=== PATIENT | female | born 1995 ===

== ENCOUNTER 2023-11-28 09:25 | Outpatient (AMB) | payer OTHER, SELFPAY ==
[2023-11-28 09:25] VITALS: BP 112/70; PULSE 80; O2SAT 99; BMI 38.8
--- NOTE | 2023-11-28 09:25 | A.OFFPC_ITS ---
Vital Signs 3 11/28/23 09:25 Height 5 ft 5 in Weight 233 lb BMI 38.8 BP 112/70 Blood Pressure Location Lt brachial Position Sitting Pulse 80 Pulse Source Pulse Oximeter Pulse Oximetry (%) 99 Oxygen Delivery Method Room Air Intake Visit Reasons: New patient Counseling Aide Required: Yes Counseling Aide Language: Dominican Allergies No Known Allergies Allergy (Verified 11/28/23 09:38) Medication List - Last Reconciled 11/28/23 by Edel Lagunas PA-C No Known Home Meds Tobacco use date assessed: 11/28/23 Dental Screening Dental Screen Date: 11/28/23 Did you have a dental visit in the last 12 months?: Yes Did you have a dental problem in the last 6 months where you did not have access to dental care?: No Was dental information given to patient?: Patient has dentist HPI New patient 2 HPI0 Details 28 year old female with no documented pa st medical history coming to the office for the first time. Patient states while she was in [place] she had a colonoscopy completed in 2012 with 1 polyp removed which was negative for malignancy. The colonoscopy was completed due to rectal bleeding and was found to have hemorrhoids at that time. She has a long history of constipation and we will still occasionally have bright red rectal bleeding with straining. She also has a history of a biopsy of a left breast mass which was also negative for malignancy. She continues to have left-sided breast pain but can no longer feel the mass. She also mentioned she has a large mass in the center of her upper back which has been present for an unknown amount of time but in last 2 months has been growing in his become more painful. She also mentioned she has been having irregular/unpredictable menstrual cycles. Lastly she mentioned she is having blurred vision. [facility] Medical History (Updated 11/28/23 @ 10:00 by Edel Lagunas PA-C) Gestational [-induced] hypertension without significant proteinuria, complicating childbirth Surgical History (Updated 11/28/23 @ 09:40 by Edel Lagunas PA-C) Hx of breast reduction, elective Family History (Updated 11/28/23 @ 09:42 by Edel Lagunas PA-C) Maternal Grandfather Colon cancer Maternal Uncle Colon cancer Maternal Aunt Breast cancer Social History Housing: House Patient Tobacco Use Status: Never used Tobacco service: No Current occupational status: unemployed Cognitive needs: No Hearing needs: No Vision needs: No Female Reproductive History Menstrual control method: none Total pregnancies: 3 Full term: 2 Ectopics: 1 History of abnormal pap smear: No Questionnaire PHQ-9 Over the last 2 weeks, how often have you been bothered by any of the following problems? 1. Little interest or pleasure in doing things: not at all 2. Feeling down, depressed, or hopeless: not at all 3. Trouble falling or staying asleep, or sleeping too much: not at all 4. Feeling tired or having little energy: several days 5. Poor appetite or overeating: several days 6. Feeling bad about yourself - or that you are a failure or have let yourself or your family down: not at all 7. Trouble concentrating on things, such as reading the newspaper or watching television: not at all 8. Moving or speaking so slowly that other people could have noticed. Or the opposite - being so fidgety or restless that you have been moving around a lot more than usual: not at all 9. Thoughts that you would be better off or of hurting yourself in some way: not at all Total score: 2 Depression Screening Interpretation: Negative Depression Screening Done: Yes 73260 - PHQ-9 Billing: Yes Source: Developed by Drs. Arian Davis, Deyanira Tracy, Jg Owens and colleagues, with an educational edel from [employer]. Thrive Questionnaire Date Thrive assessed: 11/22/23 I am a: Patient What is your living situation today?: I have a steady place to live Within the past 12 months, did the food you bought not last and you didn't have the money to get more?: Never true Within the past 12 months, did you worry whether your food would run out before you got money to buy more?: Never true Do you have trouble paying for medicines?: No Do you have trouble getting transportation to medical appointments?: No Do you have trouble paying your heating and electricity bill?: I choose not to answer this question Do you have trouble taking care of your child, family member or friend?: No Do you have trouble with day-to-day activities such as bathing, preparing meals, shopping, managing finances, etc.?: No Are you currently unemployed and looking for a job?: Yes Are you interested in more education?: Yes Please select the resources that you would like help with: Housing/Care Home, Job search/training and Education Currently or been in a relationship where the following occur: No concerns reported THRIVE Score: 0 AUDIT C Alcohol Use Questionnaire (AUDIT-C) 1. How often do you have a drink containing alcohol?: Never 2. How many drinks containing alcohol do you have on a typical day when you are drinking?: 1 or 2 3. How often do you have six or more drinks on one occasion?: Never Total Score: 0 MENDOZA-7 AMB Questionnaire MENDOZA-7 Date MENDOZA - 7 assessed: 11/28/23 Feeling nervous, anxious, or on edge: 0 = Not at all Not being able to stop or control worryin = Not at all Worrying too much about different things: 0 = Not at all Trouble relaxin = Not at all Being so restless that it is hard to sit still: 0 = Not at all Becoming easily annoyed or irritable: 0 = Not at all Feeling afraid as if something awful might happen: 0 = Not at all Total MENDOZA-7 score (0-4 normal; 5-9 mild; 10-14 moderate; 15-21 severe): 0 Source: Developed by Drs. Arian Davis, Deyanira Tracy, Jg Owens and colleagues, with an educational edel from [employer]. Review of Systems Const Denies body aches, Denies fatigue, Denies fever(s), Denies frequent falls, Reports headache(s) (occasional) and Denies weakness Eyes Reports blurry vision and Denies change in vision ENT Denies dysphagia, Denies dizziness, Reports headache(s) (occasional) and Denies odynophagia Card Denies chest pain, Denies syncope, Denies irregular heart rhythm, Denies leg edema, Denies lightheadedness and Denies dyspnea Resp Denies cough and Denies dyspnea GI Reports hematochezia (with straining), Reports constipation, Denies dysphagia, Denies dyspepsia, Denies diarrhea, Denies nausea, Denies odynophagia and Denies vomiting Reports abnormal menses, Denies urinary frequency, Denies dysuria, Denies urinary hesitancy and Denies urinary urgency Musc Details: back mass on upper spine Reports back pain and Denies myalgias Skin/Breast Reports as per HPI Neuro Denies dizziness, Denies syncope, Denies frequent falls, Reports headache(s) (occasional) and Denies weakness Psych Reports no additional complaints Endo Denies fatigue Physical exam (Primary Care) Vital Signs: Last Vital Signs Pulse 80 11/28/23 09:25 BP 112/70 11/28/23 09:25 Pulse Ox 99 11/28/23 09:25 Oxygen Delivery Method Room Air 11/28/23 09:25 BMI result Body Mass Index 38.8 Tobacco/Smoking Status: Tobacco use Status Tobacco use date assessed 11/28/23 11/28/23 09:27 Patient Tobacco Use Status Never used Tobacco 11/28/23 09:27 PHQ-9: PHQ-9 Score PHQ-9: Total score 2 11/28/23 09:33 Depression Screening Interpretation: Negative Thrive Assessment: Date of Thrive Assessment Date Thrive assessed 11/22/23 11/28/23 09:27 Currently or been in a relationship where the following occur: No concerns reported Const General: cooperative, healthy appearing, comfortable and no acute distress Orientation/consciousness: patient oriented x3 HENMT Head: Yes normocephalic Ears: hearing grossly normal bilaterally General nose exam: Normal external nose present Eyes General: appearance normal, both eyes and all related structures Conjunctivae: conjunctivae normal Neck Neck: Yes full ROM and Yes no lymphadenopathy Resp Effort & Inspection: normal respiratory effort Auscultation: clear to auscultation bilaterally, no crackles, no rales, no rhonchi and no wheezes Cardio Rate: regular rate Rhythm: regular rhythm Back/Spine/Pelvis Other: 4-5 cm soft tender mass on midline thoracic spine Back/spine/pelvis image: 2 1. Soft mass Skin General skin exam: no rashes or lesions noted Neuro General: patient oriented x3 Gait exam (Neuro): Normal gait present Extrem General: Yes normal to inspection, Yes full ROM and No edema Psych Affect: normal affect Attitude: cooperative Insight: Good insight present (Psych) Judgement: Good judgement present (Psych) Coding Level of Care Code New Pt Level 4 (21204) Diagnoses Irregular menses N92.6 Blurred vision H53.8 Back pain M54.9 Mass on back R22.2 Constipation K59.00 Assessment & Plan Assessment & Plan (1) Irregular menses: Code(s): N92.6 - Irregular menstruation, unspecified Category: Medical Plan: Patient has not undergone Pap smear in several years and referral placed for gynecology with possible hormonal treatment for irregular menses as well. (2) Blurred vision: Code(s): H53.8 - Other visual disturbances Category: Medical Plan: Referral placed for optometry stay. (3) Back pain: Code(s): M54.9 - Dorsalgia, unspecified Category: Medical Plan: Patient has reported lumbar spine pain and tenderness to palpation on exam. X- ray ordered for thoracic and lumbar spine. (4) Mass on back: Code(s): R22.2 - Localized swelling, mass and lump, trunk Category: Medical Plan: Patient has 5 cm soft and tender mass on midline thoracic spine. Referral placed for General surgery for further evaluation and x-rays ordered. (5) Constipation: Code(s): K59.00 - Constipation, unspecified Category: Medical Plan: Patient complains of constipation with occasional bleeding due to hemorrhoids advised patient to increase fiber intake and water intake and prescription sent for senna. Plan Ordered for updated blood work and follow up in 2 months for annual exam and follow up on spine mass. This note was constructed using voice recognition software. While every effort has been made to ensure accuracy and energy engineer, still areas may have been included sometimes these areas may affect the content or meeting of the given symptoms. Total time spent caring for the patient today was 30 minutes. This includes time spent before the visit reviewing the chart, time spent during the visit, and time spent after the visit and documentation. Orders: Orders 2 XR lumbar spine 2-3V Today M54.9 - Dorsalgia, unspecified, R22.2 - Localized swelling, mass and lump, trunk Free T4 (Free Thyroxine) Today Z00.00 - Encounter for general adult medical examination without abnormal findings UA CC w/rflx Micro + Cult Today R35.89 - Other polyuria MM tomosynthesis diagnostic LT Today N64.4 - Mastodynia US breast LT complete Today N64.4 - Mastodynia XR thoracic spine 2V Today R22.2 - Localized swelling, mass and lump, trunk Comprehensive Met. Panel Today Z00.00 - Encounter for general adult medical examination without abnormal findings Complete Blood Count Auto Diff Today Z00.00 - Encounter for general adult medical examination without abnormal findings TSH reflex Free T4 Today Z00.00 - Encounter for general adult medical examination without abnormal findings Vitamin B12 and Folate Today Z00.00 - Encounter for general adult medical examination without abnormal findings Vitamin D 25-OH (D2 and D3) Today Z00.00 - Encounter for general adult medical examination without abnormal findings Referrals 2 Optometry Referral H53.8 - Other visual disturbances, Z00.00 - Encounter for general adult medical examination without abnormal findings EMERGENCY SERVICE WORKER Referral N92.6 - Irregular menstruation, unspecified, Z00.00 - Encounter for general adult medical examination without abnormal findings General Surgery Referral R22.2 - Localized swelling, mass and lump, trunk Medications: New 2 sennosides (senna) 8.6 mg PO BEDTIME PRN 30 caps 0RF constipation
== END 2023-11-28 10:05 | disposition home or self-care (01) ==
DX: N92.6 Irregular menstruation, unspecified (principal); H53.8 Other visual disturbances; M54.9 Dorsalgia, unspecified; R22.2 Localized swelling, mass and lump, trunk; K59.00 Constipation, unspecified

== ENCOUNTER 2023-12-13 08:57 | Outpatient (AMB) | payer OTHER, SELFPAY ==
--- NOTE | 2023-12-13 09:05 | MHC.OFFVIS ---
Vital Signs 12/13/23 09:10 Height 5 ft 5 in Weight 238 lb BMI 39.6 BP 125/75 Blood Pressure Location Rt brachial Position Sitting Pulse 82 Intake Visit Reasons: Mass~ Mid upper back Intake Note: Patient referred by pcp Edel Lagunas PA-C for ass on mid upper back. Present for yrs. Patient c/o: enlarging, painful with touch for the past 2m. Building And Construction Manager Required: Yes Building And Construction Manager Name: Cathy FERGUSON Accompanied by: Self / Same As Patient Allergies No Known Allergies Allergy (Verified 12/13/23 09:09) HPI Comments Details: Patient is a relatively healthy 28-year-old female who presents here with a mid back soft tissue mass. He has had this indeterminate time. His increasing in size, become more symptomatic. She would like to have it removed. She has no such lesions or mass elsewhere. Chart was reviewed and patient evaluate [facility] Medical History Gestational [-induced] hypertension without significant proteinuria, complicating childbirth Surgical History Hx of breast reduction, elective Family History Maternal Grandfather Colon cancer Maternal Uncle Colon cancer Maternal Aunt Breast cancer Social History Housing: House Patient Tobacco Use Status: Never used Tobacco service: No Current occupational status: unemployed Cognitive needs: No Hearing needs: No Vision needs: No Physical Exam Vital Signs: Last Vital Signs Pulse 82 12/13/23 09:10 BP 125/75 12/13/23 09:10 BMI result Body Mass Index 39.6 Chest Other: Chest breath sounds bilaterally, HS 1 in 2 GI Other: Abdomen corpulent, soft, benign Back/Spine/Pelvis Other: Patient has a large mid back soft tissue mass consistent with a giant lipoma measuring approximately 10 by 8 cm Assessment & Plan Assessment & Plan (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 All questions answered. Arrangements were made for this Coding Level of Care Code New Pt Level 5 (10767) Diagnoses Lipomatosis gigantea E88.2
[2023-12-13 09:10] VITALS: BP 125/75; PULSE 82; BMI 39.6
== END 2023-12-13 09:18 | disposition home or self-care (01) ==
LOC: HO.HGS 08:58
PROVIDERS: Visit Provider Surgery
DX: E88.2 Lipomatosis, not elsewhere classified (principal)
CPT/HCPCS: 99204

== ENCOUNTER → 2023-12-13 08:57 | Outpatient (BNVA) | payer OTHER, SELFPAY | PROVIDERS: Visit Provider Surgery | DX: E88.2 Lipomatosis, not elsewhere classified (principal) | CPT/HCPCS: 99202 ==

== ENCOUNTER → 2023-12-20 11:00 | Outpatient (BNV) | payer OTHER, SELFPAY | PROVIDERS: Visit Provider Radiology Diagnostic Radiology | DX: N64.4 Mastodynia (principal) | CPT/HCPCS: 76642 ==

== ENCOUNTER 2023-12-20 11:02 | Outpatient (REF) | payer OTHER, SELFPAY ==
--- NOTE | ~2023-12-20 | US_ITS ---
EXAMINATION: US DIAGNOSTIC ULTRASOUND BREAST, LEFT CLINICAL INFORMATION: 28-year-old female, history of bilateral breast reduction in 2021, complaining of 1 month left breast lateral aspect pain. No palpable abnormalities. COMPARISON: None available. Baseline exam. TECHNIQUE: Ultrasound of the left breast is performed with real-time oliva scale imaging and color Doppler. Attention was given to the 12:00 to 6:00 axis left breast in the region of reported pain. FINDINGS: There is no focal suspicious finding. There is no solid mass, architectural abnormality, duct ectasia, or abnormal shadowing. -Within the superficial aspect left breast at 5:00, 7 cm from the nipple, there is a small oval hypoechoic fluid collection with smooth margination, good through transmission, wider than tall, no internal color Doppler flow or soft tissue elements seen. This has benign features, is located along the 5:00 scar from reduction, and is most likely a residual benign seroma. -No additional cystic abnormalities. US/US breast LT limited mamm only IMPRESSION: -No findings suspicious for malignancy left breast. -Benign seroma 5:00 axis, 7 cm from the nipple measuring 1.2 cm. -No ultrasound findings present to explain diffuse bilateral breast pain. Recommend clinical management and follow-up. ASSESSMENT: BI-RADS 2: Benign RECOMMENDATION: 1. Patient should be managed based on the clinical impression. 2. Otherwise, routine annual screening mammography at age 40. Electronically signed by: Adin Peguero MD 12/20/2023 12:23 PM [facility] [place]
== END 2023-12-20 11:03 | disposition home or self-care (01) ==
LOC: HO.MAMMO 11:02
DX: N64.4 Mastodynia (principal)
CPT/HCPCS: 76642

== ENCOUNTER 2023-12-30 09:21 | Day surgery (SDC) | payer OTHER, SELFPAY ==
--- NOTE | 2023-12-28 12:48 | HO.ANESPROP2 ---
Documented by User: Zita Kee NP 12/28/23 12:49 HPI - Anesthesia Eval Consult details Narrative: 28yo F for Wide Local Excision on Mid Back giant Lipoma PMFSH Active Problems Active Problems: All Active Problems Lipomatosis gigantea (Acute) Breast pain, left (Acute) Constipation (Acute) Blurred vision (Acute) Back pain (Acute) Mass on back (Acute) Annual physical exam (Acute) Irregular menses (Acute) Past Medical History Medical History Gestational [-induced] hypertension without significant proteinuria, complicating childbirth Family History Family History Maternal Grandfather Colon cancer Maternal Uncle Colon cancer Maternal Aunt Breast cancer Surgical History Surgical History Hx of breast reduction, elective Social History Social History Housing: House Patient Tobacco Use Status: Never used Tobacco Use of substances other than those prescribed or required for medical reasons: No Advance Directives: No Advance Directives Information Provided: Yes service: No Current occupational status: unemployed Cognitive needs: No Hearing needs: No Vision needs: No Meds Allergies Allergy/AdvReac Type Severity Reaction Status Date / Time No Known Allergies Allergy Verified 12/30/23 10:29 Assessment and Plan Assessment Anesthesia Assessment: Chart Reviewed Documented by User: Aspen Xavier MD 12/30/23 13:24 PMFSH Past Medical History Medical History Gestational [-induced] hypertension without significant proteinuria, complicating childbirth Family History Family History Maternal Grandfather Colon cancer Maternal Uncle Colon cancer Maternal Aunt Breast cancer Family history of problems with anesthesia: No Surgical History Surgical History Hx of breast reduction, elective History of Problems with Anesthesia: No Social History Social History Housing: House Patient Tobacco Use Status: Never used Tobacco Use of substances other than those prescribed or required for medical reasons: No Advance Directives: No Advance Directives Information Provided: Yes service: No Current occupational status: unemployed Cognitive needs: No Hearing needs: No Vision needs: No Meds Allergies Allergy/AdvReac Type Severity Reaction Status Date / Time No Known Allergies Allergy Verified 12/30/23 10:29 Exam Airway Mallampati Class: II TM Dist: >3cm Neck ROM: Full Heart: rrr Lungs: cta Assessment and Plan Assessment Anesthesia Assessment: Anesthesia Plan Discussed Final Anesthetic Review Family History of Problems with Anesthesia: No History of Problems with Anesthesia: No NPO: Yes ASA Class: II Final Preanesthetic Review: No Changes in Pt Med Stat, Meds/Allgs Chart Reviewed and Consent Obtained/Reviewed Patient Risk: Low Procedure Risk: Low Anesthetic Plan Anesthetic Plan: MAC: Disposition: Standard PACU
--- NOTE | 2023-12-29 15:59 | P.HPSUR_ITS ---
Pre-Procedural Eval Section A - 24 Hr Update-Section A only Date of Service: 12/30/23 The patient is an INPATIENT: No Changes since office visit: No Cold of Flu in the past 2 weeks, No New Medical Problems, No Changes in Medication and No Patient answered all questions Section B - Complete if H&P > 30 days Chief Complaint: Lipomatosis, not elsewhere classified Allergies: Allergies Allergy/AdvReac Type Severity Reaction Status Date / Time No Known Allergies Allergy Verified 12/13/23 09:09 Review of Systems Sugical H&P ROS: Negative: Constitution, Cardiovascular, Respiratory, Neurological, Psychiatric, Hem-Onc, Allergic/Immunologic, Gastrointestinal, Genitourinary, Musculoskeletal, Integumentary, Endocrine and Eyes/Ears/Nos e/Throat Exam Surgical H&P Exam: Normal: HEENT, Normal: Heart, Normal: Lungs, Normal: Extremities, Normal: Abdomen, Normal: Skin and Normal: Neurological Plan I have reviewed the history and physical and performed a pertinent physical examination on my patient. No changes have occurred unless specified. Time Spent With Patient Time: Total time managing care of this patient today ____ minutes.
[2023-12-30 10:33] VITALS: BMI 38.9
[2023-12-30 12:37] VITALS: BP 127/78; PULSE 93; RESP 16; TEMP 36.7; O2SAT 100
[2023-12-30 12:40] LABS: UPreg QC Valid YES; Urine Pregnancy NEGATIVE (NEGATIVE)
[2023-12-30] MEDS: Lactated Ringers 1,000 ML 100 ML IVCONT (12:51)
--- NOTE | 2023-12-30 14:22 | P.OP_ITS ---
Operative Note Operative Note Date of Service: 12/30/23 Narrative: Preoperative diagnosis: [] Very large mid back deep lipoma Postop diagnosis: [] The same Procedure [] wide local excision mid back deep lipoma Surgeon: [] Quirino Retail Loss Prevention Officer: [] Yara Type of Anesthesia: [] Mac Indication for surgery: [] Specimen size measured approximately 11 x 6 cm consistent with the large lipoma deeply situated in the mid back Findings: [] Patient brought to the operating room, placed on operative table supine position, after an adequate level of MAC anesthesia was induced, patient was placed in the right lateral decubitus position. Mid back area was prepped and draped in usual sterile fashion. Wound was infiltrated with 0.5% Marcaine/1 % lidocaine at the beginning at the end of the case. Transverse incision was made over the mass in question and carried down through skin, subcutaneous tissue, were superior and inferior skin flaps were developed with Bovie and circumferentially dissection down to the chest wall musculature was performed with uneventful dissection of a very large deeply situated lipoma. Specimen sent to pathology . Wound was irrigated, secured hemostasis, and closed using interrupted inverted dermal 3-0 Vicryl sutures followed by Steri-Strips and sterile dressings. Sponge, needle, and instrument counts were reported correct. Patient tolerated the procedure well and emerged from anesthesia stable condition. EBL minimal
[2023-12-30 14:35] VITALS: BP 126/58; PULSE 78; RESP 16; TEMP 36.1; O2SAT 96
[2023-12-30 14:50] VITALS: BP 112/65; PULSE 63; RESP 16; TEMP 36.1; O2SAT 96
== END 2023-12-30 15:29 | disposition home or self-care (01) ==
PROVIDERS: Nurse Practitioner; Visit Provider Surgery
PROC: (CPT 21931; principal; 2023-12-30 14:40)
DX: D17.1 Benign lipomatous neoplasm of skin and subcutaneous tissue of trunk (principal); Z98.890 Other specified postprocedural states; Z56.0 Unemployment, unspecified
CPT/HCPCS: 21931; 81025; 88304; J0690; J2003; J2250; J2405; J2704; J3010

== ENCOUNTER → 2023-12-30 09:21 | Outpatient (BNV) | payer OTHER, SELFPAY | PROVIDERS: Visit Provider Surgery | DX: D17.1 Benign lipomatous neoplasm of skin and subcutaneous tissue of trunk (principal) | CPT/HCPCS: 21931 ==

== ENCOUNTER 2024-01-10 10:37 | Outpatient (AMB) | payer OTHER, SELFPAY ==
--- NOTE | 2024-01-10 10:46 | A.OFFVIS_ITS ---
Intake Visit Reasons: S/P WLE mid back giant lipoma Intake Note: Patient here s/p WLE mid back giant lipoma. Reports incision healing well. Patient c/o: feels bumpy. Steri strips fell off. Denies pain, oozing. Manufacturing Intern Required: No Accompanied by: Self / Same As Patient Allergies No Known Allergies Allergy (Verified 01/10/24 10:49) Medication List - Last Reconciled 01/10/24 by Jaret Win MD sennosides (senna) 8.6 mg PO BEDTIME PRN HPI Comments Details: Patient presents for follow-up. She has no wound issues or complaints. Pathology is benign [facility] Medical History Gestational [-induced] hypertension without significant proteinuria, complicating childbirth Surgical History Hx of breast reduction, elective Family History Maternal Grandfather Colon cancer Maternal Uncle Colon cancer Maternal Aunt Breast cancer Social History Housing: House Patient Tobacco Use Status: Never used Tobacco service: No Current occupational status: unemployed Cognitive needs: No Hearing needs: No Vision needs: No Physical Exam Back/Spine/Pelvis Other: Incision is clean dry and intact healing very well. Patient has a moderately sized seroma. Office Procedures Aspiration of Seroma Details: After appropriate positioning, patient underwent Betadine prep and aspiration of a proximally 50 cc of seroma from upper back giant lipoma excision. Dressing applied. Well tolerated Aspiration of Seroma: 85045 Seroma Aspiration All charges added?: Procedure code (CPT) selection complete Assessment & Plan Assessment & Plan (1) Seroma due to trauma: Code(s): T79.2XXA - Traumatic secondary and recurrent hemorrhage and seroma, initial encounter Category: Surgical Plan: Patient was been given local instructions including avoiding strenuous activities which will promote recurrence of seroma and will otherwise follow-up p.r.n.. Should this process recur, patient was been instructed to contact office. All questions answered. Orders: Orders AMB Aspiration of Seroma Today T79.2XXA - Traumatic secondary and recurrent he morrhage and seroma, initial encounter Coding Level of Care Code Est Pt Level 4 (19673) Global (90798) Diagnoses Seroma due to trauma T79.2XXA CPT Codes Aspiration of Seroma ([id number])
== END 2024-01-10 11:11 | disposition home or self-care (01) ==
PROVIDERS: Visit Provider Surgery
DX: T79.2XXA Traumatic secondary and recurrent hemorrhage and seroma, initial encounter (principal)
CPT/HCPCS: 99024

== ENCOUNTER → 2024-01-10 10:37 | Outpatient (BNVA) | payer OTHER, SELFPAY | PROVIDERS: Visit Provider Surgery | DX: T79.2XXA Traumatic secondary and recurrent hemorrhage and seroma, initial encounter (principal) | CPT/HCPCS: 99212 ==

== ENCOUNTER 2024-01-25 09:45 | Outpatient (AMB) | payer OTHER, SELFPAY ==
[2024-01-25 09:50] VITALS: BP 126/70; BMI 39.1
--- NOTE | 2024-01-25 09:50 | MHC.OFFVIS ---
Vital Signs 01/25/24 09:50 Height 5 ft 5 in Weight 235 lb BMI 39.1 BP 126/70 Intake Visit Reasons: irregular menses/Referral Information Interpreted: clinical only Retail Office Associate: Retail Office Associate Present Allergies No Known Allergies Allergy (Verified 01/25/24 09:50) Medication List - Last Reconciled 01/25/24 by Tenisha العراقي CNM No Known Home Meds Is last menstrual period known: Yes Last menstrual period: 01/17/24 HPI HPI irregular menses/Referral: Details: Patient is here to discuss her irregular menses periods came as follows in the last few months in September she had it on September 18 and it lasted for 5 days ended on the 26 of September In October she had 2 periods 1st came on October 15 and it lasted to the and the 2nd 1 came on October 31 and it lasted till the . Then in November she had 1 on November 23 and it lasted through the 01 of December . She had no menses at all in December Then she had a period on January 16 that lasted for 4 days. She currently has not been contracepting though she sometimes uses condoms. She says her periods used to be regular when she was skinny which was before and after the of her 1st child who she had for years ago in [place]. She gained a lot of weight with her 2nd or around the 2nd and has not lost it that child is about a year old. She had vaginal births for both in [place] with her 2nd 1 she had gestational hypertension. She says she has gained on lot of weight over the few years and has not been able to lose it. Her periods have been most irregular since she gave to her last child.. She recalls being on control pills years ago but only was on them for a couple of months and had irregular bleeding with them so she stopped them. She has heard about other methods of control like implants and IUDs and she does not want them. She believes she had a negative Pap smear last year during . She has the records at home from [facility] Medical History Gestational [-induced] hypertension without significant proteinuria, complicating childbirth Surgical History Hx of breast reduction, elective Family History Maternal Grandfather Colon cancer Maternal Uncle Colon cancer Maternal Aunt Breast cancer Social History Housing: House Patient Tobacco Use Status: Never used Tobacco service: No Current occupational status: unemployed Cognitive needs: No Hearing needs: No Vision needs: No Female Reproductive History Menstrual Age of Menarche: 13 Date of last menstrual period: 01/17/24 control method: none Total pregnancies: 2 Full term: 2 History of abnormal pap smear: No (2022,neg.per patient) Physical Exam Vital Signs: Last Vital Signs BP 126/70 01/25/24 09:50 BMI result Body Mass Index 39.1 Other: Normal external exam vagina is pink and moist cervix pink and clear. There is some whitish discharge noted cervix is long close thick multiparous nontender. Uterus difficult to feel secondary to adipose but nontender good muscle tone. External Female Exam: normal external appearance Speculum Exam - Vagina: normal appearance of the vagina and normal vaginal discharge Speculum Exam - Cervix: normal appearance of the cervix Bimanual exam- vagina & uterus: normal bimanual exam, uterine size normal, consistency normal, uterine mobility normal, uterine shape normal and non-tender Bimanual Exam- Adnexa, other: normal adnexae, no masses and No adnexal tenderness Assessment & Plan Assessment & Plan (1) Irregular menses: Code(s): N92.6 - Irregular menstruation, unspecified Category: Medical (2) Encounter for screening examination for sexually transmitted disease: Code(s): Z11.3 - Encounter for screening for infections with a predominantly sexual mode of transmission Category: Medical (3) Obesity (BMI 30-39.9): Code(s): E66.9 - Obesity, unspecified Category: Medical (4) Counseling for initiation of control method: Code(s): Z30.09 - Encounter for other general counseling and advice on contraception Category: Medical Plan Discussed the into relationship between weight gain and irregular menses and an ovulatory cycles and the increased hormonal milieu that is responsible for and that also contributes to increased risk for pre diabetes and fatty liver disease as well as other dyscrasias. Discussed the losing weight is the primary and most important thin to work on doing to help reverse risks of all of these things. Discussed how the increased male female hormones and their precursors contribute to cycles were there is in ovulation therefore potential for formation of cysts and also irregular cycles which results from all this discussed that 1 option to consider since she is not interested implants would be to consider combination OCPs she could start with her next menses she is interested is discussed the side effects of them and she chooses it is her choice to stop. She is interested in given them a try and she is going to work on weight loss to because she is motivated to avoid the family Legacy of diabetes. See her in 3 months to see how she is doing with them and she can also schedule her nailhead puncher annual exam and she is going to bring lots of her Pap smear from previous visits in floor them with her. RTC about 3 months. Orders: Orders HIV Ab/Ag Today N92.6 - Irregular menstruation, unspecified, Z11.3 - Encounter for screening for infections with a predominantly sexual mode of transmission Hepatitis B Surface Antigen Today N92.6 - Irregular menstruation, unspecified, Z11.3 - Encounter for screening for infections with a predominantly sexual mode of transmission Hepatitis C Antibody Today N92.6 - Irregular menstruation, unspecified, Z11.3 - Encounter for screening for infections with a predominantly sexual mode of transmission Syphilis Screen Today N92.6 - Irregular menstruation, unspecified, Z11.3 - Encounter for screening for infections with a predominantly sexual mode of transmission CT NG by PCR Today N89.8 - Other specified noninflammatory disorders of vagina Bacterial Vaginosis Panel Today N89.8 - Other specified noninflammatory disorders of vagina Medications: New desog-e.estradiol/e.estradiol 0.15-0.02 mgx21 /0.01 mg x 5 start at the beginning of next menses 1 tab PO DAILY 84 tabs 3RF Coding Level of Care Code New Pt Level 3 (77736) Diagnoses Irregular menses N92.6 Encounter for screening examination for sexually transmitted disease Z11.3 Obesity (BMI 30-39.9) E66.9 Counseling for initiation of control method Z30.09
== END 2024-01-25 11:13 | disposition home or self-care (01) ==
PROVIDERS: Visit Provider Advanced Practice Midwife
DX: N92.6 Irregular menstruation, unspecified (principal); Z30.09 Encounter for other general counseling and advice on contraception; E66.9 Obesity, unspecified
CPT/HCPCS: 99203

== ENCOUNTER 2024-01-25 11:16 | Outpatient (REF) | payer OTHER, SELFPAY ==
[2024-01-26 04:17] LABS: CT PCR NOT DETECTED (Not Detect.); NG PCR NOT DETECTED (Not Detect.)
[2024-01-26 08:26] LABS: HBsAGNum1 0.48 S/CO (0.00-0.99); HIV AB/AG Nonreactive (Nonreactive); HIV Num 1 0.11 S/CO (0.00-0.99); Hepatitis B Surface Antigen Negative (Negative); ~HepC Num1 0.11 S/CO (0.00-0.79); ~Hepatitis C Antibody Nonreactive (Nonreactive)
[2024-01-26 08:28] LABS: Syphilis Screen Nonreactive (Nonreactive)
[2024-01-26 09:00] LABS: Bacterial Vaginosis PCR POSITIVE (Negative); Candida Group PCR NOT DETECTED (Not Detect); Candida glab krusei PCR NOT DETECTED (Not Detect); Trichomonas vaginalis PCR NOT DETECTED (Not Detect)
== END 2024-01-25 11:17 | disposition home or self-care (01) ==
LOC: HO.HHCL 11:16
PROVIDERS: Visit Provider Advanced Practice Midwife
DX: N92.6 Irregular menstruation, unspecified (principal); Z11.3 Encounter for screening for infections with a predominantly sexual mode of transmission; N89.8 Other specified noninflammatory disorders of vagina
CPT/HCPCS: 0352U; 36415; 86780; 86803; 87340; 87389; 87491; 87591

== ENCOUNTER 2024-01-30 09:35 | Outpatient (AMB) | payer OTHER, SELFPAY ==
[2024-01-30 09:46] VITALS: BP 114/70; PULSE 78; O2SAT 98; BMI 38.4
--- NOTE | 2024-01-30 09:46 | MHC.PC.OV ---
Vital Signs 01/30/24 09:46 Height 5 ft 5 in Weight 231 lb BMI 38.4 BP 114/70 Blood Pressure Location Lt brachial Position Sitting Pulse 78 Pulse Source Pulse Oximeter Pulse Oximetry (%) 98 Oxygen Delivery Method Room Air Intake Visit Reasons: Annual Exam Allergies No Known Allergies Allergy (Verified 01/30/24 09:58) Medication List - Last Reconciled 01/30/24 by Edel Lagunas PA-C desog-e.estradiol/e.estradiol 0.15-0.02 mgx21 /0.01 mg x 5 1 tab PO DAILY Tobacco use date assessed: 11/28/23 Dental Screening Dental Screen Date: 11/28/23 HPI Annual Exam HPI Details 28-year-old female with no past medical history coming to the office for annual exam. In review of the notes patient was seen by Gynecology 01/25/2024 for irregular menses patient was started hormonal replacement therapy and underwent STI testing. Patient was [place] [facility] [place] for back lipoma which was removed and patient was seen postoperatively doing well advised to avoid strenuous lifting.?Thoracic spine x-ray was negative still waiting results on lumbar spine. [id number] roof bolting coal miner was used for the duration of this visit. States she was not yet started on the control given by her political scientist. She states she has been doing well postoperatively since the removal of the lipoma but does have the presence of a seroma that has been feeling again. She believes her tetanus shot is up-to-date in 2022. She also mentions on the right breast for the last week she has had a small red dot under the nipple that is painful and has not been getting bigger. [facility] Medical History Gestational [-induced] hypertension without significant proteinuria, complicating childbirth Surgical History Hx of breast reduction, elective Family History Maternal Grandfather Colon cancer Maternal Uncle Colon cancer Maternal Aunt Breast cancer Social History Housing: House Patient Tobacco Use Status: Never used Tobacco Tobacco use type: Cigarette e-Cigarette/Vaping Use: Never Used Second Hand Smoke Exposure: No service: No Current occupational status: unemployed Cognitive needs: No Hearing needs: No Vision needs: No Female Reproductive History Menstrual Age of Menarche: 13 Questionnaire PHQ-9 Over the last 2 weeks, how often have you been bothered by any of the following problems? 1. Little interest or pleasure in doing things: not at all 2. Feeling down, depressed, or hopeless: not at all 3. Trouble falling or staying asleep, or sleeping too much: not at all 4. Feeling tired or having little energy: several days 5. Poor appetite or overeating: several days 6. Feeling bad about yourself - or that you are a failure or have let yourself or your family down: not at all 7. Trouble concentrating on things, such as reading the newspaper or watching television: not at all 8. Moving or speaking so slowly that other people could have noticed. Or the opposite - being so fidgety or restless that you have been moving around a lot more than usual: not at all 9. Thoughts that you would be better off or of hurting yourself in some way: not at all Total score: 2 Depression Screening Interpretation: Negative Depression Screening Done: Yes 83690 - PHQ-9 Billing: Yes Source: Developed by Drs. Arian Davis, Deyanira Tracy, Jg Owens and colleagues, with an educational edel from [employer] Thrive Questionnaire Date Thrive assessed: 01/30/24 I am a: Patient What is your living situation today?: I have a steady place to live Within the past 12 months, did the food you bought not last and you didn't have the money to get more?: Never true Within the past 12 months, did you worry whether your food would run out before you got money to buy more?: Never true Do you have trouble paying for medicines?: No Do you have trouble getting transportation to medical appointments?: No Do you have trouble paying your heating and electricity bill?: I choose not to answer this question Do you have trouble taking care of your child, family member or friend?: No Do you have trouble with day-to-day activities such as bathing, preparing meals, shopping, managing finances, etc.?: No Are you currently unemployed and looking for a job?: Yes Are you interested in more education?: Yes Currently or been in a relationship where the following occur: No concerns reported THRIVE Score: 0 AUDIT C Alcohol Use Questionnaire (AUDIT-C) 1. How often do you have a drink containing alcohol?: Never 2. How many drinks containing alcohol do you have on a typical day when you are drinking?: 1 or 2 3. How often do you have six or more drinks on one occasion?: Never Total Score: 0 MENDOZA-7 AMB Questionnaire MENDOZA-7 Date MENDOZA - 7 assessed: 01/30/24 Feeling nervous, anxious, or on edge: 0 = Not at all Not being able to stop or control worryin = Not at all Worrying too much about different things: 0 = Not at all Trouble relaxin = Not at all Being so restless that it is hard to sit still: 0 = Not at all Becoming easily annoyed or irritable: 0 = Not at all Feeling afraid as if something awful might happen: 0 = Not at all Total MENDOZA-7 score (0-4 normal; 5-9 mild; 10-14 moderate; 15-21 severe): 0 Source: Developed by Drs. Arian Davis, Deyanira Tracy, Jg Owens and colleagues, with an educational edel from [employer] Review of Systems Const Denies body aches, Denies fatigue, Denies fever(s), Denies frequent falls, Reports headache(s) (occasionally ) and Denies weakness Eyes Reports no additional complaints, Reports blurry vision and Denies change in vision ENT Reports Normal hearing present, Denies dysphagia, Denies dizziness, Denies facial pain, Reports headache(s) (occasionally ), Denies nasal congestion and Denies odynophagia Card Denies chest pain, Denies syncope, Denies leg edema, Denies lightheadedness and Denies dyspnea Resp Denies cough and Denies dyspnea GI Denies constipation, Denies dysphagia, Denies dyspepsia, Denies diarrhea, Denies nausea, Denies odynophagia and Denies vomiting Denies urinary frequency, Denies dysuria, Denies urinary hesitancy and Denies urinary urgency Musc Denies back pain and Denies myalgias Skin/Breast Reports as per HPI Neuro Reports Normal hearing present, Denies dizziness, Denies syncope, Denies frequent falls, Reports headache(s) (occasionally ) and Denies weakness Psych Reports no additional complaints Endo Denies fatigue Physical exam (Primary Care) Vital Signs: Last Vital Signs Pulse 78 01/30/24 09:46 BP 114/70 01/30/24 09:46 Pulse Ox 98 01/30/24 09:46 Oxygen Delivery Method Room Air 01/30/24 09:46 BMI result Body Mass Index 38.4 Tobacco/Smoking Status: Tobacco use Status Tobacco use date assessed 11/28/23 01/30/24 09:48 Patient Tobacco Use Status Never used Tobacco 01/30/24 09:48 Tobacco use type Cigarette 01/30/24 09:48 e-Cigarette/Vaping Use Never Used 01/30/24 09:48 PHQ-9: PHQ-9 Score PHQ-9: Total score 2 01/30/24 09:48 Depression Screening Interpretation: Negative Thrive Assessment: Date of Thrive Assessment Date Thrive assessed 01/30/24 01/30/24 09:48 Currently or been in a relationship where the following occur: No concerns reported Const General: cooperative, healthy appearing, comfortable and no acute distress Orientation/consciousness: patient oriented x3 HENMT Head: Yes normocephalic Ears: hearing grossly normal bilaterally, external ears normal, TM's normal bilaterally and EAC's normal General nose exam: Normal external nose present Face and sinus: Yes normal facial exam and Yes sinuses nontender Mouth: Normal oral and palatal mucosa present and tongue normal Throat: Yes posterior oropharynx normal Eyes General: appearance normal, both eyes and all related structures Conjunctivae: conjunctivae normal Pupils: Equal, round and reactive pupils present EOM: EOMs intact bilaterally and No Nystagmus present Neck Neck: Yes normal visual inspection, Yes full ROM and Yes no lymphadenopathy Chest Chest palpation & inspection: normal inspection of the chest Chest/axillae images: 1. Erythematous bump nontender to palpation no drainage Resp Effort & Inspection: normal respiratory effort Auscultation: clear to auscultation bilaterally, no crackles, no rales, no rhonchi, no wheezes and breath sounds present Cardio Rate: regular rate Rhythm: regular rhythm Peripheral pulses: radial pulses present and dorsalis pedis present GI Inspection: Yes normal to inspection and No Abdominal wall edema Palpation (GI): Soft to palpation, not firm and nontender Auscultation: normal bowel sounds Rectal Exam - Female: deferred General: Yes no CVA tenderness Back/Spine/Pelvis Back: no CVA tenderness Skin General skin exam: no rashes or lesions noted Neuro General: patient oriented x3 Cranial nerves: Yes Equal, round and reactive pupils present, Yes Midline tongue present, Yes Normal hearing present, Yes Ability to bilaterally elevate shoulders present and No Nystagmus present Gait exam (Neuro): Normal gait present Extrem General: Yes normal to inspection, Yes full ROM, No no pedal edema and No edema Psych Speech and movement: Normal speech and movement present Affect: normal affect Insight: Good insight present (Psych) Judgement: Good judgement present (Psych) Coding Level of Care Code Est Pt Prev Care 18-39y(08013) Diagnoses Obesity (BMI 30-39.9) E66.9 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 Patient states the seroma feels like it is filling back up with fluid advised to reach out to his General surgery for repeat drain. (3) Annual physical exam: Code(s): Z00.00 - Encounter for general adult medical examination without abnormal findings Category: Medical Plan: Patient is up-to-date on all recommended routine screenings and vaccinations for her age. Blood work is updated. (4) Irregular menses: Code(s): N92.6 - Irregular menstruation, unspecified Category: Medical Plan: Patient waiting for next cycle to start control. (5) Folliculitis: Code(s): L73.9 - Follicular disorder, unspecified Category: Medical Plan: bump on the right breast consistent with folliculitis. Advised to continue to monitor her symptoms and follow up if the bump worsens or persists. Plan This note was constructed using voice recognition software. While every effort has been made to ensure accuracy and linux programmer, still areas may have been included sometimes these areas may affect the content or meeting of the given symptoms. Total time spent caring for the patient today was 30 minutes. This includes time spent before the visit reviewing the chart, time spent during the visit, and time spent after the visit and documentation. Orders: Referrals Manager Motor Nutrition Referral E66.9 - Obesity, unspecified Medications: New polyethylene glycol 3350 17 grams PO DAILY 119 grams 1RF cholecalciferol (vitamin D3) 25 mcg PO DAILY 90 caps 3RF
== END 2024-01-30 10:19 | disposition home or self-care (01) ==
DX: Z00.00 Encounter for general adult medical examination without abnormal findings (principal); N92.6 Irregular menstruation, unspecified; E66.9 Obesity, unspecified; Z68.38 Body mass index [BMI] 38.0-38.9, adult; E88.2 Lipomatosis, not elsewhere classified; L73.9 Follicular disorder, unspecified

== ENCOUNTER → 2024-01-30 09:35 | Outpatient (BNVA) | payer OTHER, SELFPAY | DX: Z00.00 Encounter for general adult medical examination without abnormal findings (principal); E66.9 Obesity, unspecified; E88.2 Lipomatosis, not elsewhere classified; L73.9 Follicular disorder, unspecified; Z68.38 Body mass index [BMI] 38.0-38.9, adult | CPT/HCPCS: 96127; 99395 ==

== ENCOUNTER 2024-03-07 12:13 | Outpatient (AMB) | payer OTHER, SELFPAY ==
--- NOTE | 2024-03-07 12:28 | A.OFFVIS_ITS ---
VS Expanded 03/07/24 12:29 03/07/24 13:04 Height 5 ft 5 ft Weight 230 lb 13.184 oz 231 lb BMI 45.1 45.1 Intake Visit Reasons: Obesity, unspecified Allergies No Known Allergies Allergy (Verified 01/30/24 09:58) Nutrition Presentation Details: Pt presents for MNT fo obesity Pt report having gained and maintained about 50 lbs during second a 1 1/2 yrs ago Pt reports having 2 meals/d 8:30 am B: eggs/raymundo and hasbrown , or water (green juice cucumber/celer ry/lemon/alison /apple) snacks: water, 5-6 pm : rice/beans or white or sausage, drumstick, water or juices snacks : variety of snacks physical activity: ADL etoh/smoking--- food frequency fruits: 0-1/d dairy: 2-3 serving/d veg: non starchy 1/d, veg juice 1/d starches > 25 fish:not including beverages: water, juice, veg juice BS Monitoring Most Recent Diabetes Results: No Data to Display KKE-Zzjafia-Ug.Jeor Equation Height: 5 ft Weight: 231 lb Resting Metabolic Rate: 1700.49 Calculated Activity Level: Sedentary Calories Needed to Maintain Weight: 2040.59 Diagnosis Nutrition problem #1: food nutri know defi As related to (etiology) #1: diagnosis As evidenced by (sign/symptom) #1: knowledge deficit of diet Monitoring/Goals Nutrition problem monitoring: level of knowledge/skill and total CHO intake Learning/Education Readiness to learn: good [facility] Medical History Gestational [-induced] hypertension without significant proteinuria, complicating childbirth Surgical History Hx of breast reduction, elective Family History Maternal Grandfather Colon cancer Maternal Uncle Colon cancer Maternal Aunt Breast cancer Social History Housing: House Patient Tobacco Use Status: Never used Tobacco Tobacco use type: Cigarette e-Cigarette/Vaping Use: Never Used Second Hand Smoke Exposure: No service: No Current occupational status: unemployed Cognitive needs: No Hearing needs: No Vision needs: No Female Reproductive History Menstrual Age of Menarche: 13 Assessment & Plan Assessment & Plan (1) Obesity (BMI 30-39.9): Code(s): E66.9 - Obesity, unspecified Category: Medical Plan: Wt: 105 Kg ( 03/10 ) Est kcal needs as per MSJ: 2000 (40% carb, 30% protein/fat) Est fluid needs as per 25-30 ml/d: 3200 Est prot per day as per 1 g/kg bw: 105 Recommend fiber intake : 8-10 g per day and gradually increase to 25-28 g per day for women and 35-38 g for men or as tolerated Recommend sodium intake per day : less than 2300 mg Educated patient on: ( R = reviewed V = verbalizes understanding N/R = needs review N/A = not applicable * Food sources of carbohydrate, adequate serving sizes and its role in various health conditions: R * Differences between complex carbohydrates a simple carbohydrates, role of fiber in diet: R V N/R * Lean protein sources of foods: R * Differences between types of fats and role in diet (mono on saturated fat fatty acids, saturated fatty acids, trans fats): R * Food sources of sodium in salt and healthy modifications for heart health in kidney health: R V R/V * Vitamins and minerals: R V N/R * Healthy plate method concept: R * Physical activity: Benefits a precaution: R V N/R * Hypoglycemia protocol (rule of 15): R V N/R * Dietary prevention of Hyperglycemia: R V R/V Patient Instructions: Practice mindful eating strategies Work on reducing total carb to 45-60 g at meal and 20 g as snack 3 meals/day and 2-3 snacks if needed Ok to choose meal replacement if necessary - see list of meal options ideas Coding Level of Care Code Nutr Indiv Intake (16589) Diagnoses Obesity (BMI 30-39.9) E66.9 Time Spent (min) 30
[2024-03-07 12:29] VITALS: BMI 45.1
[2024-03-13 08:48] VITALS: BMI 45.1
== END 2024-03-07 13:09 | disposition home or self-care (01) ==
PROVIDERS: Visit Provider Dietitian, Registered
DX: E66.9 Obesity, unspecified (principal)

== ENCOUNTER → 2024-03-07 12:13 | Outpatient (BNVA) | payer OTHER, SELFPAY | PROVIDERS: Visit Provider Dietitian, Registered | DX: E66.9 Obesity, unspecified (principal); Z71.3 Dietary counseling and surveillance; Z68.41 Body mass index [BMI] 40.0-44.9, adult | CPT/HCPCS: 97802 ==

== ENCOUNTER 2024-07-17 09:55 | Outpatient (AMB) | payer OTHER, SELFPAY ==
[2024-07-17 09:57] VITALS: BP 120/62; PULSE 91; O2SAT 98; BMI 44.2
--- NOTE | 2024-07-17 09:57 | MHC.PC.OV ---
Vital Signs 07/17/24 09:57 Height 5 ft Weight 226 lb 8 oz BMI 44.2 BP 120/62 Blood Pressure Location Lt brachial Position Sitting Pulse 91 Pulse Source Pulse Oximeter Pulse Oximetry (%) 98 Oxygen Delivery Method Room Air Intake Visit Reasons: Chest discomfort Nuclear Medicine Technician Required: No Accompanied by: Self / Same As Patient Allergies No Known Allergies Allergy (Verified 07/17/24 10:16) Medication List - Last Reconciled 07/17/24 by Edel Lagunas PA-C polyethylene glycol 3350 17 grams PO DAILY Tobacco use date assessed: 07/17/24 Dental Screening Dental Screen Date: 07/17/24 Did you have a dental visit in the last 12 months?: No Did you have a dental problem in the last 6 months where you did not have access to dental care?: No Was dental information given to patient?: No HPI Chest discomfort HPI Details 29-year-old female with past medical history of obesity last seen 01/2024 coming in for acute problem.? 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 Presenting with intermittent chest pain and left arm numbness. Symptoms have been present for approximately three weeks, with episodes of sharp chest pain that initially occurred daily and now are less frequent but tend to occur in the evening or nighttime. There is associated numbness and tingling in the left arm, encountered mainly when chest pain manifests and lasts for a couple of seconds. The patient reports difficulties with breathing and sensations of chest pressure but denies any previous medical history of similar symptoms. There is no shortness of breath or changes in symptom severity with physical activity like walking or climbing stairs. Her episodes of chest pain typically last a few seconds before resolving spontaneously and are linked with stress as well. [facility] Medical History Gestational [-induced] hypertension without significant proteinuria, complicating childbirth Surgical History Hx of breast reduction, elective Family History Maternal Grandfather Colon cancer Maternal Uncle Colon cancer Maternal Aunt Breast cancer Social History Housing: House Patient Tobacco Use Status: Never used Tobacco Tobacco use type: Cigarette e-Cigarette/Vaping Use: Never Used Second Hand Smoke Exposure: No service: No Current occupational status: unemployed Cognitive needs: No Hearing needs: No Vision needs: No Female Reproductive History Menstrual Age of Menarche: 13 Questionnaire PHQ-9 Over the last 2 weeks, how often have you been bothered by any of the following problems? 1. Little interest or pleasure in doing things: not at all 2. Feeling down, depressed, or hopeless: not at all 3. Trouble falling or staying asleep, or sleeping too much: not at all 4. Feeling tired or having little energy: not at all 5. Poor appetite or overeating: not at all 6. Feeling bad about yourself - or that you are a failure or have let yourself or your family down: not at all 7. Trouble concentrating on things, such as reading the newspaper or watching television: not at all 8. Moving or speaking so slowly that other people could have noticed. Or the opposite - being so fidgety or restless that you have been moving around a lot more than usual: not at all 9. Thoughts that you would be better off or of hurting yourself in some way: not at all Total score: 0 Depression Screening Interpretation: Negative Depression Screening Done: Yes Source: Developed by Drs. Arian Davis, Deyanira Tracy, Jg Owens and colleagues, with an educational edel from [employer]. Thrive Questionnaire Date Thrive assessed: 07/17/24 I am a: Patient What is your living situation today?: I have a steady place to live Within the past 12 months, did the food you bought not last and you didn't have the money to get more?: Never true Within the past 12 months, did you worry whether your food would run out before you got money to buy more?: Never true Do you have trouble paying for medicines?: No Do you have trouble getting transportation to medical appointments?: No Do you have trouble paying your heating and electricity bill?: No Do you have trouble taking care of your child, family member or friend?: No Do you have trouble with day-to-day activities such as bathing, preparing meals, shopping, managing finances, etc.?: No Are you currently unemployed and looking for a job?: Yes Are you interested in more education?: Yes Please select the resources that you would like help with: Housing/Chcf, Childcare, Job search/training and Education Currently or been in a relationship where the following occur: No concerns reported THRIVE Score: 0 AUDIT C Alcohol Use Questionnaire (AUDIT-C) 1. How often do you have a drink containing alcohol?: Never 2. How many drinks containing alcohol do you have on a typical day when you are drinking?: 1 or 2 3. How often do you have six or more drinks on one occasion?: Never Total Score: 0 MENDOZA-7 AMB Questionnaire MENDOZA-7 Date MENDOZA - 7 assessed: 07/17/24 Feeling nervous, anxious, or on edge: 1 = Several days Not being able to stop or control worryin = Not at all Worrying too much about different things: 0 = Not at all Trouble relaxin = Not at all Being so restless that it is hard to sit still: 1 = Several days Becoming easily annoyed or irritable: 1 = Several days Feeling afraid as if something awful might happen: 1 = Several days Total MENDOZA-7 score (0-4 normal; 5-9 mild; 10-14 moderate; 15-21 severe): 4 Source: Developed by Drs. Arian Davis, Deyanira Tracy, Jg Owens and colleagues, with an educational edel from [employer]. Review of Systems Const Denies body aches, Denies chills, Denies fever(s), Denies headache(s) and Denies poor appetite Eyes Reports no additional complaints ENT Denies dizziness and Denies headache(s) Card Reports as per HPI, Denies syncope, Denies edema, Denies irregular heart rhythm, Denies lightheadedness and Denies dyspnea Resp Denies cough and Denies dyspnea GI Denies abdominal pain, Denies nausea and Denies vomiting Reports no additional complaints Musc Reports no additional complaints and Denies abnormal gait Skin/Breast Reports system reviewed and no additional complaints, except as documented Neuro Denies abnormal gait, Denies dizziness, Denies syncope and Denies headache(s) Psych Reports no additional complaints Physical exam (Primary Care) Vital Signs: Last Vital Signs Pulse 91 07/17/24 09:57 BP 120/62 07/17/24 09:57 Pulse Ox 98 07/17/24 09:57 Oxygen Delivery Method Room Air 07/17/24 09:57 BMI result Body Mass Index 44.2 Tobacco/Smoking Status: Tobacco use Status Tobacco use date assessed 07/17/24 07/17/24 10:06 Patient Tobacco Use Status Never used Tobacco 07/17/24 10:06 Tobacco use type Cigarette 07/17/24 10:06 e-Cigarette/Vaping Use Never Used 07/17/24 10:06 PHQ-9: PHQ-9 Score PHQ-9: Total score 0 07/17/24 13:38 Depression Screening Interpretation: Negative Thrive Assessment: Date of Thrive Assessment Date Thrive assessed 07/17/24 07/17/24 10:06 Currently or been in a relationship where the following occur: No concerns reported Const General: cooperative, healthy appearing, comfortable and no acute distress Orientation/consciousness: patient oriented x3 HENMT Head: Yes normocephalic Ears: hearing grossly normal bilaterally General nose exam: Normal external nose present Eyes General: appearance normal, both eyes and all related structures Conjunctivae: conjunctivae normal Neck Neck: Yes full ROM and Yes no lymphadenopathy Resp Effort & Inspection: normal respiratory effort Auscultation: clear to auscultation bilaterally, no crackles, no rales, no rhonchi and no wheezes Cardio Rate: regular rate Rhythm: regular rhythm Skin General skin exam: no rashes or lesions noted Neuro General: patient oriented x3 Gait exam (Neuro): Normal gait present Extrem General: Yes normal to inspection, Yes full ROM and No edema Psych Affect: normal affect Attitude: cooperative Insight: Good insight present (Psych) Judgement: Good judgement present (Psych) Office Procedures EKG Details: EKG reviewed by myself and Dr. Randall. Normal sinus rhythm with regular rate without ST depression or elevation, normal QRS complex, [place] [id number], Complete Coding Level of Care Code Est Pt Level 4 (58236) Diagnoses Chest pain R07.9 Obesity (BMI 30-39.9) E66.9 Anxiety F41.9 CPT Codes EKG - CPT: 26309-[id number], Complete ([id number]) Assessment & Plan Assessment & Plan (1) Chest pain: Code(s): R07.9 - Chest pain, unspecified Category: Medical Plan: The evaluated symptomatology primarily suggests stress-related chest pain, supported by a normal EKG. A chest X-ray is recommended to exclude other etiologies. Considering the stress component, mental health support could be an adjunct strategy if symptoms persist. Monitoring and follow-up are vital to ensure no signs of worsening or new symptoms. Reviewed with patient red flag symptoms and when to present for re-evaluation (2) Obesity (BMI 30-39.9): Code(s): E66.9 - Obesity, unspecified Category: Medical Plan: Healthy diet and regular exercise is encouraged. (3) Anxiety: Code(s): F41.9 - Anxiety disorder, unspecified Category: Medical Plan: Referral was placed for counseling today to help address symptoms of anxiety and stress. Declining medical management today. Plan This note was constructed using voice recognition software. While every effort has been made to ensure accuracy and annealing oven operator, still areas may have been included sometimes these areas may affect the content or meeting of the given symptoms. Total time spent caring for the patient today was 20 minutes. This includes time spent before the visit reviewing the chart, time spent during the visit, and time spent after the visit and documentation. Patient was informed and verbally consented to the use of an ambient scribe for clinic note documentation during this visit. Orders: Orders XR chest 2V 07/17/24 R07.9 - Chest pain, unspecified AMB EKG-In Office 07/17/24 R07.9 - Chest pain, unspecified Referrals Counseling Referral E66.9 - Obesity, unspecified, F41.9 - Anxiety disorder, unspecified Medications: New tirzepatide (weight loss) (Zepbound) 5 mg (0.5 mL) subcut QWEEK 2 mL 0RF
== END 2024-07-17 11:07 | disposition home or self-care (01) ==
LOC: HO.HMCH 09:56
DX: R07.9 Chest pain, unspecified (principal); E66.9 Obesity, unspecified; F41.9 Anxiety disorder, unspecified; Z68.41 Body mass index [BMI] 40.0-44.9, adult

== ENCOUNTER → 2024-07-17 09:55 | Outpatient (BNVA) | payer OTHER, SELFPAY | DX: R20.0 Anesthesia of skin (principal); R07.9 Chest pain, unspecified; E66.9 Obesity, unspecified; F41.9 Anxiety disorder, unspecified; Z68.41 Body mass index [BMI] 40.0-44.9, adult | CPT/HCPCS: 93005; 99212 ==

== ENCOUNTER 2024-07-20 13:09 | Outpatient (AMB) | payer OTHER, SELFPAY ==
[2024-07-20 13:58] VITALS: BP 104/78; PULSE 115; RESP 16; TEMP 37.8; O2SAT 100; BMI 44.1
--- NOTE | 2024-07-20 13:58 | MHC.OFFWIV ---
Intake Vital Signs 07/20/24 13:58 Height 5 ft Weight 226 lb BMI 44.1 BP 104/78 Blood Pressure Location Lt brachial Position Sitting Respiration 16 Pulse 115 H Pulse Source Pulse Oximeter Temp 100.1 F Temp Source Oral Pulse Oximetry (%) 100 Oxygen Delivery Method Room Air Intake Visit Reasons: EP sore throat, body aches, dizziness, SOB Intake Note: Pt is here today c/o S/T, bodyaches, vertigo and SOB since last night Patient Tobacco Use Status: Never used Tobacco Allergies No Known Allergies Allergy (Verified 07/20/24 14:18) HPI EP sore throat, body aches, dizziness, SOB HPI Details This is a 29-year-old female patient who presents to the walk-in clinic today with report of sore throat, body aches, headaches, fatigue, fever up to 101 since this morning. Denies any known exposure to sick contacts. Has not taken anything at home for symptoms. [facility] Medical History Gestational [-induced] hypertension without significant proteinuria, complicating childbirth Surgical History Hx of breast reduction, elective Family History Maternal Grandfather Colon cancer Maternal Uncle Colon cancer Maternal Aunt Breast cancer Social History Housing: House Patient Tobacco Use Status: Never used Tobacco Tobacco use type: Cigarette e-Cigarette/Vaping Use: Never Used Second Hand Smoke Exposure: No service: No Current occupational status: unemployed Cognitive needs: No Hearing needs: No Vision needs: No Female Reproductive History Menstrual Age of Menarche: 13 Review of Systems Const All systems reviewed & are unremarkable except as noted in HPI and below Physical Exam Vital Signs: Last Vital Signs Temp 100.1 F 07/20/24 13:58 Pulse 115 H 07/20/24 13:58 Resp 16 07/20/24 13:58 BP 104/78 07/20/24 13:58 Pulse Ox 100 07/20/24 13:58 Oxygen Delivery Method Room Air 07/20/24 13:58 BMI result Body Mass Index 44.1 Const General: cooperative and ill appearing Nutritional Appearance: obese Limitations: no limitations HEENT Head: Yes normal to inspection Ears: hearing grossly normal bilaterally General nose exam: Normal external nose present Face and sinus: Yes normal facial exam Mouth: Normal oral and palatal mucosa present Throat: Yes posterior oropharynx abnormal (Mild erythema) Neck Neck: Yes no lymphadenopathy Resp Effort & Inspection: normal respiratory effort and Actively coughing Quality: dry Auscultation: clear to auscultation bilaterally Cardio Rate: regular rate Rhythm: regular rhythm Skin General skin exam: no rashes or lesions noted Extrem General: Yes no clubbing, cyanosis or edema Psych Appearance: grossly normal Mental Status: mental status grossly normal Speech and movement: Normal speech and movement present Results AMB Rapid Strep AMB Rapid Strep Negative Last Edit by Jayne Thakkar CMA on 07/20/24 14:23 Results Reviewed Results Reviewed: Laboratory Last Values Strep Scn Rapid Clinic Negative 07/20/24 14:09 Assessment & Plan Assessment & Plan (1) Upper respiratory infection, viral: Code(s): J06.9 - Acute upper respiratory infection, unspecified Plan: Symptoms are consistent with a viral upper respiratory infection. COVID/flu/RSV swab was obtained, and patient aware she will be notified of results once these are available. I will prescribe her benzonatate for her cough, which we reviewed indications, use, possible side effects of. 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 I encouraged rest, increased hydration, and we discussed self-limiting nature of her symptoms. If she does not improve with time and conservative measures, she can certainly return to the clinic for further evaluation. If she develops any respiratory distress, she should go to the emergency department. All questions were answered and patient verbalizes understanding and agrees to plan. Medical Parasitologist #[id number] Orders: Orders SARS-CoV2/FLU/RSV Today J06.9 - Acute upper respiratory infection, unspecified AMB Rapid Strep Screen Today Z13.9 - Encounter for screening, unspecified Medications: New benzonatate 100 mg PO BID 7 days PRN 14 caps 0RF cough R05.9 - Cough, unspecified Coding Level of Care Code Est Pt Level 4 (59374) Diagnoses Upper respiratory infection, viral J06.9
== END 2024-07-20 14:48 | disposition home or self-care (01) ==
PROVIDERS: Visit Provider Nurse Practitioner Family
DX: J06.9 Acute upper respiratory infection, unspecified (principal); Z13.9 Encounter for screening, unspecified

== ENCOUNTER 2024-07-20 13:09 | Outpatient (REF) | payer OTHER, SELFPAY ==
[2024-07-20 17:46] LABS: Influenza A PCR NEGATIVE (Negative); Influenza B PCR NEGATIVE (Negative); Resp Syncy Virus RNA Qual PCR NEGATIVE (Negative); SARS COV2 PCR INHOUSE NEGATIVE (Negative)
== END 2024-07-20 13:10 | disposition home or self-care (01) ==
LOC: HO.LNP 13:09
PROVIDERS: Visit Provider Nurse Practitioner Family
DX: J06.9 Acute upper respiratory infection, unspecified (principal)
CPT/HCPCS: 0241U; 87880; 99212